=== PATIENT | female | born 1955 | race Caucasian/White ===

== ENCOUNTER 2016-06-19 10:09 | Emergency (ER) | payer BC ==
--- NOTE | 2016-06-19 10:34 | EDM.PDOC ---
<Pallavi Mcclure - Last Filed: 06/19/16 12:43> ED HPI Trauma - General Chief Complaint: Lower Extremity Injury/Pain Stated Complaint: FALL Time Seen by Provider: 06/19/16 10:19 - History of Present Illness INITIAL COMMENTS - FREE TEXT/NARRATIVE: History of present illness: [60 yo female fell on right knee this morining about 30 minutes ago. She went to go get mail from her condo and slipped on Ice and fell. She crawled to her car to the garage and called EMS. She has minimal pain but has not noticed any swelling or her knee out of place, no hip pain, syncope, chest pain, dizziness or other pertinent symptoms. She does not have history of osteoarthritis. She recently had aortic valve replacement on 12/2015. She is on coumadin and aspirin. ] Review of systems: As per history of present illness and below otherwise all systems reviewed and negative. Past medical history: As per history of present illness and as reviewed below otherwise noncontributory. Surgical history: As per history of present illness and as reviewed below otherwise noncontributory. Social history: No reported history of drug or alcohol abuse. Family history: As per history of present illness and as reviewed below otherwise noncontributory. Physical exam: General: Well developed, well nourished in NAD HEENT: Atraumatic, normocephalic, pupils reactive, negative for conjunctival pallor or scleral icterus, mucous membranes moist, throat clear, neck supple, nontender, trachea midline. Lungs: Clear to auscultation, breath sounds equal bilaterally, chest nontender. Heart: S1S2, regular, negative for clicks, rubs, or JVD. Abdomen: Soft, nondistended, nontender. Negative for masses or hepatosplenomegaly. Negative for costovertebral tenderness. Pelvis: Stable nontender. Genitourinary: Deferred. Rectal: Deferred. Extremities: Bilateral Knees: erythema, minimal swelling and tenderness. No echymosis or Effusion. No calf and hip tenderness Neurovascular unremarkable. Neuro: Awake, alert, oriented. Cranial nerves II through XII unremarkable. Cerebellum unremarkable. Motor and sensory unremarkable throughout. Exam nonfocal. Diagnostics: [Right knee x-ray: depressed lateral tibial plateau fracture. Pelvis x ray: unremarkable. ] Therapeutics: [None] Impression: [Depressed right lateral tibial plateau fracture] Plan: [Spoke with Dr. Crawley the orthopedics and she recommend to transfer due to her being on coumadin. Spoke to Dr. Murrell ( ortho) who accepted for direct admission. She will be transported by ground ambulance. ] Definitive disposition and diagnosis as appropriate pending reevaluation and review of above. Allergies/ADRs: Allergies Sulfa (Sulfonamide Antibiotics) Allergy (Verified 04/26/16 00:28) Cannot Remember vancomycin Allergy (Verified 04/26/16 00:28) Renal Insufficiency Home Medications: Ambulatory Orders Aspirin 81 mg PO DAILY 12/25/15 [Confirmed 04/26/16] Metoprolol Tartrate [Lopressor] 25 mg PO Q12HR 12/25/15 [Confirmed 04/26/16] Pantoprazole [Protonix] 40 mg PO BEDTIME 12/25/15 [Confirmed 04/26/16] Warfarin [Coumadin] 7.5 mg PO DAILY 12/25/15 [Confirmed 04/26/16] Levothyroxine 75 mcg PO DAILY 01/07/16 [Confirmed 04/26/16] Warfarin [Coumadin] 5 mg PO WEEKLY 06/19/16 [Confirmed 06/19/16] Past Medical History HEENT History: Reports: Impaired vision Cardiovascular History: Reports: Heart murmur, Hypertension Respiratory History: Reports: None Gastrointestinal History: Reports: None Genitourinary History: Reports: None CAMPUS COORDINATOR History: Reports: , Other (see below) Other OB/BYN History: tubal Musculoskeletal History: Reports: None Neurological History: Reports: None Psychiatric History: Reports: None Endocrine/Metabolic History: Reports: Other (see below) Other Endocrine/Metabolic History: thyroid Disease Hematologic History: Reports: None Immunologic History: Reports: None Oncologic (Cancer) History: Reports: None Dermatologic History: Reports: None - Infectious Disease History Infectious Disease History: Reports: None - Past Surgical History Head Surgeries/Procedures: Reports: None HEENT Surgical History: Reports: Tonsillectomy Cardiovascular Surgical History: Reports: Other (see below) Other Cardiovascular Surgeries/Procedures: aortic valve replacement 12/08/15. open heart surgery - 2015 GI Surgical History: Reports: Appendectomy, Cholecystectomy, Colonoscopy Female Surgical History: Reports: Hysterectomy, Tubal ligation Endocrine Surgical History: Reports: Parathyroidectomy Social & Family History - Family History Family Medical History: Noncontributory - Tobacco Use Smoking Status *Q: Never Smoker Second Hand Smoke Exposure: No - Caffeine Use Caffeine Use: Reports: Tea Caffeine Use Comment: states hasn't had caffeine since surgery - Alcohol Use Days Per Week of Alcohol Use: 1 Number of Drinks Per Day: 2 Total Drinks Per Week: 2 - Recreational Drug Use Recreational Drug Use: No Review of Systems - Review of Systems Review Of Systems: See Below (see below) Trauma Exam - Physical Exam Exam: See Below (see below) Course - Vital Signs Last Recorded V/S: Last Vital Signs Temp 36.5 C 06/19/16 10:14 Pulse 64 06/19/16 10:14 Resp 18 06/19/16 10:14 BP 152/73 H 06/19/16 10:14 Pulse Ox 96 06/19/16 10:14 - Orders/Labs/Meds Orders: Active Orders 24 hr Category Date Time Status BASIC METABOLIC PANEL,BMP [CHEM] Stat Lab 06/19/16 12:31 Received CBC WITH AUTO DIFF [HEME] Stat Lab 06/19/16 12:31 Received Labs: Laboratory Tests 06/19/16 Range/Units 12:31 INR 1.78 H (0.86-1.11) Meds: Medications Discontinued Medications Generic Name Dose Route Start Last Admin Trade Name Freq PRN Reason Stop Dose Admin Hydromorphone HCl 0.5 mg 06/19/16 13:12 Dilaudid IVPUSH 06/19/16 13:13 ONETIME STA Departure - Departure Time of Disposition: 12:50 Disposition: DC/Tfer to Acute Hospital 02 Condition: good Clinical Impression: Tibial plateau fracture, right Referrals: PCP,None [Primary Care Provider] - Forms: ED Department Discharge Additional Instructions: The following information is given to patients seen in the emergency department who are being discharged to home. This information is to outline your options for follow-up care. We provide all patients seen in our emergency department with a follow-up referral. The need for follow-up, as well as the timing and circumstances, are variable depending upon the specifics of your emergency department visit. If you don't have a primary care physician on staff, we will provide you with a referral. We always advise you to contact your personal physician following an emergency department visit to inform them of the circumstance of the visit and for follow-up with them and/or the need for any referrals to a consulting specialist. The emergency department will also refer you to a specialist when appropriate. This referral assures that you have the opportunity for follow-up care with a specialist. All of these measure are taken in an effort to provide you with optimal care, which includes your follow-up. Under all circumstances we always encourage you to contact your private physician who remains a resource for coordinating your care. When calling for follow-up care, please make the office aware that this follow-up is from your recent emergency room visit. If for any reason you are refused follow-up, please contact the [facility] Emergency Department at and asked to speak to the emergency department charge nurse. <Holland Smith - Last Filed: 06/19/16 13:24> Course - Vital Signs Text/Narrative:: 60-year-old female with a history of a recent aortic heart valve replacement on Coumadin now status post mechanical slip and fall with a right knee injury this morning. Patient unable to range of motion her bear weight secondary to pain since the injury. She has no prior history of surgical treatment of that knee or the right lower extremity. Patient does not have an orthopedic doctor. No other injury or complaint. Specifically no head injury or neck pain. Patient in no acute distress nontender hip and pelvis with stable pelvis. Right knee bony tenderness soft compartments and no significant soft tissue swelling and positive effusion. X-ray of the pelvis unremarkable. X-ray of the right knee with a lateral tibial plateau fracture which is depressed. X-rays interpreted by me/report reviewed. Case discussed with her Latasha Coats orthopedics loss prevention leader who states this injury is beyond the scope of practice and recommends transfer. Case discussed with Dr. Murrell orthopedist loss prevention leader at [facility] in my not. He is aware of history and findings accept patient in transfer to his service. Patient stable and consents for transfer Departure - Departure Time of Disposition: 13:21
--- NOTE | 2016-06-19 12:03 | CR ---
EXAMINATION: Right knee HISTORY: Fall COMPARISON: None TECHNIQUE: 3 views FINDINGS: There is a mildly displaced vertical fracture through the lateral tibial plateau. There is also impaction of the more medial aspect of the lateral tibial plateau. There is a small lipohemart hrosis. Joint space narrowing is noted within the patellofemoral compartment. The visualized osseous structures appear osteopenic. IMPRESSION: 1. Mildly displaced and impacted lateral tibial plateau fracture. 2. Osteopenia and degenerative changes also noted.
--- NOTE | 2016-06-19 12:05 | CR ---
EXAMINATION: Pelvis HISTORY: Pain COMPARISON: 04/26/2016 TECHNIQUE: AP views. FINDINGS: There is no definite acute osseous abnormality, dislocation, or fracture identified. Bone mineralization appears normal. The SI joints are symmetric. The iliopectineal lines are intact. Mild subchondral sclerosis is noted within the right acetabulum. IMPRESSION: No acute osseous abnormality identified.
[2016-06-19] MEDS: HYDROmorphone 1 MG/ML Syringe IVPUSH STA (13:37)
[2016-06-19 14:44] VITALS: BP 163/71
== END 2016-06-19 14:48 ==
LOC: MW.ED 10:09
DX: S82.141A Displaced bicondylar fracture of right tibia, initial encounter for closed fracture (principal); I10 Essential (primary) hypertension; Z88.2 Allergy status to sulfonamides; Z88.6 Allergy status to analgesic agent; Z79.82 Long term (current) use of aspirin; Z79.899 Other long term (current) drug therapy; Z90.49 Acquired absence of other specified parts of digestive tract; Z98.890 Other specified postprocedural states; Z90.89 Acquired absence of other organs; W00.0XXA Fall on same level due to ice and snow, initial encounter
CPT/HCPCS: 36415; 72170; 73562; 80048; 85025; 85610; 96374; 99285; J1170

== ENCOUNTER → 2016-08-08 | Outpatient (CLI) | payer BC ==
--- NOTE | 2016-08-08 15:20 | CR ---
EXAMINATION: Right knee HISTORY: Pain COMPARISON: 07/09/2016 TECHNIQUE: 4 views FINDINGS/IMPRESSION: There is screw and plate fixation of a lateral epicondyle fracture, unchanged i n position and alignment. Advanced joint space narrowing is noted within the patellofemoral compartm ent. No joint effusion.
== END ==
LOC: MW.CHORTHO 07:52
PROVIDERS: ATTEND Physician Assistant
DX: M25.561 Pain in right knee (principal); Z96.7 Presence of other bone and tendon implants; Z51.81 Encounter for therapeutic drug level monitoring; Z79.01 Long term (current) use of anticoagulants
CPT/HCPCS: 36415; 73564-26-RT; 73564-RT; 85610

== ENCOUNTER 2017-04-02 10:10 | Day surgery (SDC) | payer BC ==
[~2017-04-02 10:10] MED LIST: Lactated Ringers 1,000 ML IV SCH; Sodium Chloride 0.9% 10 ML Syringe FLUSH PRN; Sodium Chloride 0.9% 2.5 ML Syringe FLUSH PRN
[2017-04-02] MEDS ORDERED: Propofol 200 MG/20 ML SDV ONE (10:25)
[2017-04-02] MEDS ORDERED: Lidocaine 2% 5 ML SDV ONE (10:25)
--- NOTE | 2017-04-02 11:16 | PCM.PREANE ---
Preanesthetic Assessment - Procedure Proposed Procedure: EGD, Colonoscopy - Anesthesia/Transfusion/Family Hx Anesthesia History: Prior Anesthesia Without Reaction Family History of Anesthesia Reaction: No Transfusion History: No Prior Transfusion(s) Intubation History: Unknown Additional History: Extensive evaluation by Dr. Irizarry, Dr. Brunner and discussion with Dr. Fang done. Can she undergo these procedures without problem with anesthetic? Yes, we will proceed with iv sedation. - Review of Systems Pulmonary: Shortness of Breath (occasional) Cardiovascular: Palpitations (occasional), Other (Hx CHF w/cardiomyopathy - compensated) Gastrointestinal: Other (GERD) Neurological: No Symptoms Other: Reports: Easy Bleeding (due to anticoagualtion), Anxiety - Physical Assessment NPO Status Date: 04/01/17 NPO Status Time: 22:00 Height: 5 ft 8 in Weight: 268 lb ASA Class: 3 Mental Status: Alert & Oriented x3 Airway Class: Mallampati = 2 Dentition: Reports: Normal Dentition Thyro-Mental Finger Breadths: 3 Mouth Opening Finger Breadths: 3 (sloped palate) ROM/Head Extension: Full Lungs: Clear to Auscultation, Normal Respiratory Effort Cardiovascular: Regular Rate, Regular Rhythm, No Murmurs, Other (click due to valve) - Allergies Allergies/Adverse Reactions: Allergies Allergy/AdvReac Type Severity Reaction Status Date / Time Sulfa (Sulfonamide Allergy Rash Verified 03/16/17 12:09 Antibiotics) vancomycin Allergy Renal Verified 03/16/17 12:09 Insufficiency - Blood Blood Available: No Product(s) Available: None - Anesthesia Plan Pre-Op Medication Ordered: None - Acknowledgements Anesthesia Type Planned: MAC Pt an Appropriate Candidate for the Planned Anesthesia: Yes Alternatives and Risks of Anesthesia Discussed w Pt/Guardian: Yes Pt/Guardian Understands and Agrees with Anesthesia Plan: Yes PreAnesthesia Questionnaire HEENT History: Reports: Impaired Vision Other HEENT History: wears glasses Cardiovascular History: Reports: Heart Murmur, Hypertension Respiratory History: Reports: None Other Respiratory History: short of breath on exertion, possible sleep apnea( never tested) Gastrointestinal History: Reports: None Genitourinary History: Reports: None SCARRER History: Reports: , Other (See Below) Other OB/BYN History: tubal Musculoskeletal History: Reports: None Other Musculoskeletal History: hx of fx right tibial plateau Neurological History: Reports: None Psychiatric History: Reports: None Endocrine/Metabolic History: Reports: Other (See Below) Other Endocrine/Metabolic History: thyroid Disease Hematologic History: Reports: None Other Hematologic History: denies blood transfusions Immunologic History: Reports: None Oncologic (Cancer) History: Reports: None Dermatologic History: Reports: None - Infectious Disease History Infectious Disease History: Reports: None - Past Surgical History Cardiovascular Surgical History: Reports: Other (See Below) Other Cardiovascular Surgeries/Procedures: aortic valve replacement 12/08/15. open heart surgery - 2015 - SUBSTANCE USE Smoking Status *Q: Never Smoker Second Hand Smoke Exposure: No Days Per Week of Alcohol Use: 1 Number of Drinks Per Day: 2 Total Drinks Per Week: 2 Recreational Drug Use History: No - HOME MEDS Home Medications: Home Meds Aspirin 81 mg PO DAILY 12/25/15 [History] Metoprolol Tartrate [Lopressor] 25 mg PO Q12HR 12/25/15 [History] Pantoprazole [Protonix] 40 mg PO ASDIRECTED 12/25/15 [History] Warfarin [Coumadin] 7.5 mg PO DAILY 12/25/15 [History] Levothyroxine 75 mcg PO DAILY 01/07/16 [History] Warfarin [Coumadin] 11.25 mg PO WEEKLY 06/19/16 [History] Ascorbic Acid [Vitamin C] 1,000 mg PO DAILY 03/16/17 [History] Calcium Carbonate/Vitamin D3 [Calcium 500 mg Chewable Tablet] 500 mg PO DAILY [History] Multivitamin [Multiple Vitamins] 1 tab PO DAILY 03/16/17 [History] Valsartan 0 mg PO DAILY 03/27/17 [History] - CURRENT (IN HOUSE) MEDS Current Meds: Current Medications Lactated Ringer's (Ringers, Lactated) 1,000 mls @ 125 mls/hr IV ASDIRECTED TERE Sodium Chloride (Saline Flush) 10 ml FLUSH ASDIRECTED PRN PRN Reason: Keep Vein Open Sodium Chloride (Saline Flush) 2.5 ml FLUSH ASDIRECTED PRN PRN Reason: Keep Vein Open Discontinued Medications Lidocaine (Xylocaine-Mpf 2%) Confirm Administered Dose 5 ml .ROUTE .STK-MED ONE Stop: 04/02/17 10:26 Propofol (Diprivan 20 Ml) Confirm Administered Dose 400 mg .ROUTE .STK-MED ONE Stop: 04/02/17 10:26
--- NOTE | 2017-04-02 11:59 | PCM.OPNOTE ---
- General Post-Op/Procedure Note Date of Surgery/Procedure: 04/02/17 Operative Procedure(s): Diagnostic EGD and colonoscopy Findings: Small hiatal hernia, mild gastritis, rectal mass, grade 4 hemorrhoids Pre Op Diagnosis: Anemia, hematochezia Post-Op Diagnosis: Hiatal hernia, mild gastritis, rectal mass, grade 4 hemorrhoids Anesthesia Technique: TEE Primary Surgeon: Avril Fang Condition: Good
--- NOTE | 2017-04-02 12:00 | PCM.POSTAN ---
POST ANESTHESIA ASSESSMENT - MENTAL STATUS Mental Status: Alert, Oriented - RESPIRATORY Respiratory Status: Respiratory Rate WNL, Airway Patent, O2 Saturation Stable - CARDIOVASCULAR CV Status: Pulse Rate WNL, Blood Pressure Stable - GASTROINTESTINAL GI Status: No Symptoms - POST OP HYDRATION Hydration Status: Adequate & Stable
--- NOTE | 2017-04-02 12:09 | PCM48HPAN ---
Post Anesthesia Note - EVALUATION WITHIN 48HRS OF ANESTHETIC Vital Signs in Normal Range: Yes Patient Participated in Evaluation: Yes Respiratory Function Stable: Yes Airway Patent: Yes Cardiovascular Function Stable: Yes Hydration Status Stable: Yes Pain Control Satisfactory: Yes Nausea and Vomiting Control Satisfactory: Yes Mental Status Recovered: Yes
[2017-04-02 12:45] VITALS: BP 107/54
[2017-04-02] MEDS ORDERED: HYDROmorphone 2 MG/ML Syringe ONE (12:55)
--- NOTE | 2017-04-02 17:17 | OR ---
SURGEON: AVRIL FANG MD DATE OF PROCEDURE: 04/02/2017 PREOPERATIVE DIAGNOSIS: Hematochezia, anemia. POSTOPERATIVE DIAGNOSES: 1. Hiatal hernia. 2. Mild gastritis. 3. Rectal mass. 4. Grade 4 hemorrhoids. PROCEDURE PERFORMED: Diagnostic EGD and colonoscopy. ENDOSCOPIST: Avril Fang MD. ANESTHESIA: MAC. INSTRUMENT USED: Olympus endoscope, Olympus colonoscope. EXTENT OF EXAM: To the second portion of duodenum, to the cecum. PREPARATION: Good. LIMITATIONS: None. INDICATION FOR EXAMINATION: The patient is a 61-year-old female, who presents with hematochezia and anemia. She has a heart history and is on Coumadin. She was seen by her primary care physician, who bridged her with Lovenox for the procedure today. The patient and I discussed the need for diagnostic EGD and colonoscopy. We discussed those procedure, expected perioperative course, and risks including bleeding, infection, or damage to surrounding structures, including perforation. The patient verbalized understanding and wishes to proceed. PROCEDURE IN DETAIL: The patient was brought into the endoscopy suite and placed in a beach chair position. A time-out was completed verifying the patient's name, age, date of , allergies, and procedure to be performed. Monitored anesthesia care was induced and a bite block was placed in the patient's mouth. Continuous oxygen was provided via nasal cannula throughout the procedure. After adequate sedation was achieved, a well lubricated endoscope was placed in the patient's mouth and advanced under direct visualization to the second portion of duodenum. This appeared normal and a photograph was taken. The scope was then fully withdrawn while examining the color, texture, anatomy, and integrity of the upper GI tract. The duodenum appeared normal. The scope was removed from the stomach and a photograph was taken of the pylorus and the GE junction. The patient was noted to have a very small hiatal hernia. Biopsies were taken of the gastric antrum, body, and fundus and sent for histologic and H. pylori testing. The patient was noted to have a small amount of gastritis in the antrum. No ulcers were noted. The scope was then brought into the distal esophagus and a photograph was taken of the hiatal sac and GE junction. Both appeared normal with no evidence of inflammation or esophagitis. The remainder of the esophageal mucosa was free of pathology. The scope was then removed from the patient and this portion of the procedure was terminated. The patient was placed in a left lateral decubitus position. A digital rectal exam was performed. This exam revealed grade 4 hemorrhoids. There were no stigmata of recent bleeding or inflammation. A well lubricated colonoscope was inserted into the rectum and advanced under direct visualization to the level of cecum. The cecum was identified by both visual and anatomic landmarks. A photograph was taken of the cecal cap as well as with the scope retroflexed within the cecum. The scope was then fully withdrawn while examining the color, texture, anatomy, and integrity of the mucosa from the cecum to the anal canal. The patient was found to have a rectal mass at 10 cm. This appeared to be broad based and there was a question of whether or not it was invading the surrounding structures. Given this I took multiple biopsies of the mass itself which was friable. These were sent to pathology for histologic testing. The scope was then brought into the rectum and retroflexed. This allowed visualization of the upper part of the rectal mass and photographs were taken. The scope was then straightened out and removed from the patient. The cecum to anus time was over 6 minutes. The patient tolerated procedure well and was taken to PACU in stable condition. ENDOSCOPIC DIAGNOSES: 1. Hiatal hernia. 2. Mild gastritis. 3. Rectal mass. 4. Grade 4 hemorrhoids. RECOMMENDATIONS: We will refer the patient on to a colorectal surgeon in [place] for further workup and removal of this mass. FARNAZ PRADHAN /[id number]
== END 2017-04-02 12:30 | disposition home or self-care (01) ==
LOC: MW.SDS 10:10
PROVIDERS: ATTEND Surgery
DX: K29.50 Unspecified chronic gastritis without bleeding (principal); D12.8 Benign neoplasm of rectum; K44.9 Diaphragmatic hernia without obstruction or gangrene; K64.3 Fourth degree hemorrhoids; D64.9 Anemia, unspecified; F41.9 Anxiety disorder, unspecified; K21.9 Gastro-esophageal reflux disease without esophagitis; I11.0 Hypertensive heart disease with heart failure; I50.9 Heart failure, unspecified; E07.9 Disorder of thyroid, unspecified; E66.01 Morbid (severe) obesity due to excess calories; Z68.41 Body mass index [BMI] 40.0-44.9, adult; Z79.01 Long term (current) use of anticoagulants; Z79.899 Other long term (current) drug therapy; Z79.82 Long term (current) use of aspirin; Z95.2 Presence of prosthetic heart valve; Z88.2 Allergy status to sulfonamides; Z88.8 Allergy status to other drugs, medicaments and biological substances; Z90.710 Acquired absence of both cervix and uterus; Z98.51 Tubal ligation status; Z98.890 Other specified postprocedural states
CPT/HCPCS: 43239; 45380; 88305; 88312; J1170; J7120; 00740; J2704

== ENCOUNTER 2017-08-01 13:08 | Emergency (ER) | payer BC ==
--- NOTE | 2017-08-01 13:52 | EDM.PDOC ---
ED HPI GENERAL MEDICAL PROBLEM - General Chief Complaint: Upper Extremity Injury/Pain Stated Complaint: RIGHT ARM PAIN Time Seen by Provider: 08/01/17 13:28 Source of Information: Reports: Patient History Limitations: Reports: No Limitations - History of Present Illness INITIAL COMMENTS - FREE TEXT/NARRATIVE: HISTORY AND PHYSICAL: []61-year-old female presenting with right shoulder arm pain History of Present Illness: []Patient was seen at [facility] & was given an IV on Thursday pain started on Thursday. 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 Past medical history: As per history of present illness and as reviewed below otherwise noncontributory. Surgical history: As per history of present illness and as reviewed below otherwise noncontributory. Social history: No reported history of drug or alcohol abuse. Family history: As per history of present illness and as reviewed below otherwise noncontributory. Physical exam: Alert and oriented female answering questions appropriately in full sentences without any shortness of breath HEENT: Atraumatic, normocehpalic, pupils reactive, negative for conjunctival pallor or scleral icterus, mucous membranes moist, throat clear, neck supple, nontender, trachea midline. Lungs: Clear to auscultation, breath sounds equal bilaterally, chest non tender. Heart: S1S2, regular, negative for clicks, rubs, or JVD. Abdomen: Soft, nondistended, nontender. Negative for masses or hepatossplenmegaly. Negative for costovertebral tenderness. Pelvis: Stable nontender. Genitourinary: Deferred. Rectal: Deferred Extremities: Atraumatic, negative for cords or calf pain. There was no rotator cuff involvement no difficulty with raising and lowering her arm. Radial pulse is intact Neurovascular unremarkable. Neuro: Awake, alert, oriented. Cranial nerves II through XII unremarkable. Cerebellum unremarkable. Motor and sensory unremarkable throughout. Exam nonfocal. Discussed the results with the patient to believe the origin of her pain is in her shoulder Diagnostics: []Ultrasound right upper extremity Extremity right shoulder Therapeutics: [] Impression: []Shoulder pain Plan: []Discharged to home May use the pain medicine that she has at home for helping her sleep Referral to Dr. Latasha Crawley for further evaluation Follow-up in the emergency room if you have worsening of your symptoms as needed Definitive disposition and diagnosis as appropriate pending reevaluation and review of above. Onset: Gradual Duration: Day(s): (3) Quality: Reports: Ache Severity: Moderate Improves with: Reports: None Worsens with: Reports: None right arm Pain Score (Numeric/FACES): 7 - Related Data Allergies Allergy/AdvReac Type Severity Reaction Status Date / Time Sulfa (Sulfonamide Allergy Rash Verified 03/16/17 12:09 Antibiotics) vancomycin Allergy Renal Verified 03/16/17 12:09 Insufficiency Home Meds: Home Meds Aspirin 81 mg PO DAILY 12/25/15 [History] Metoprolol Tartrate [Lopressor] 25 mg PO Q12HR 12/25/15 [History] Pantoprazole [ProTONIX] 40 mg PO ASDIRECTED 12/25/15 [History] Warfarin [Coumadin] 7.5 mg PO DAILY 12/25/15 [History] Levothyroxine 75 mcg PO DAILY 01/07/16 [History] Warfarin [Coumadin] 11.25 mg PO WEEKLY 06/19/16 [History] Ascorbic Acid [Vitamin C] 1,000 mg PO DAILY 03/16/17 [History] Calcium Carbonate/Vitamin D3 [Calcium 500 mg Chewable Tablet] 500 mg PO DAILY [History] Multivitamin [Multiple Vitamins] 1 tab PO DAILY 03/16/17 [History] Valsartan 0 mg PO DAILY 03/27/17 [History] Past Medical History HEENT History: Reports: Impaired Vision Other HEENT History: wears glasses Cardiovascular History: Reports: Cardiomyopathy, Heart Murmur, Heart Valve Replacement, Hypertension Respiratory History: Reports: SOB Other Respiratory History: short of breath on exertion, possible sleep apnea( never tested) Gastrointestinal History: Reports: Colon Polyp, GERD, Hemorrhoids Genitourinary History: Reports: None [employer] History: Reports: , Other (See Below) Other OB/BYN History: tubal Musculoskeletal History: Reports: Arthritis, Fracture Other Musculoskeletal History: hx of fx right tibial plateau Neurological History: Reports: None Psychiatric History: Reports: None Endocrine/Metabolic History: Reports: Hypothyroidism, Obesity/BMI 30+ Other Endocrine/Metabolic History: thyroid Disease Hematologic History: Reports: Anemia Other Hematologic History: denies blood transfusions Immunologic History: Reports: None Oncologic (Cancer) History: Reports: None Dermatologic History: Reports: None - Infectious Disease History Infectious Disease History: Reports: None - Past Surgical History Head Surgeries/Procedures: Reports: None Cardiovascular Surgical History: Reports: Valve Replacement Other Cardiovascular Surgeries/Procedures: aortic valve replacement Other Musculoskeletal Surgeries/Procedures:: patient reports screws to right knee Social & Family History - Family History Family Medical History: Noncontributory - Tobacco Use Smoking Status *Q: Unknown Ever Smoked Second Hand Smoke Exposure: No - Caffeine Use Caffeine Use: Reports: Coffee Caffeine Use Comment: states hasn't had caffeine since surgery - Alcohol Use Days Per Week of Alcohol Use: 1 Number of Drinks Per Day: 2 Total Drinks Per Week: 2 - Recreational Drug Use Recreational Drug Use: No Drug Use in Last 12 Months: No Review of Systems - Review of Systems Review Of Systems: ROS reveals no pertinent complaints other than HPI. ED EXAM, GENERAL - Physical Exam Exam: See Below (see dictation) Course - Vital Signs Last Recorded V/S: Last Vital Signs Temp 36.3 C 08/01/17 13:25 Pulse 66 08/01/17 13:25 Resp 18 08/01/17 13:25 BP 184/85 H 08/01/17 13:25 Pulse Ox 96 08/01/17 13:25 - Orders/Labs/Meds Orders: Active Orders 24 hr Category Date Time Status Shoulder Comp Rt [CR] Stat Exams 08/01/17 13:26 Taken Venous Doppler Upr Ext Rt [US] Stat Exams 08/01/17 13:32 Taken Departure - Departure Time of Disposition: 15:20 Disposition: Home, Self-Care 01 Condition: Good Clinical Impression: Shoulder pain Qualifiers: Chronicity: acute Laterality: right Qualified Code(s): M25.511 - Pain in right shoulder - Discharge Information Instructions: Shoulder Pain, Musculoskeletal Pain Referrals: PCP,None [Primary Care Provider] - Latasha Crawley MD [Physician] - Forms: ED Department Discharge Additional Instructions: The following information is given to patients seen in the emergency department who are being discharged to home. This information is to outline your options for follow-up care. We provide all patients seen in our emergency department with a follow-up referral. The need for follow-up, as well as the timing and circumstances, are variable depending upon the specifics of your emergency department visit. If you don't have a primary care physician on staff, we will provide you with a referral. We always advise you to contact your personal physician following an emergency department visit to inform them of the circumstance of the visit and for follow-up with them and/or the need for any referrals to a consulting specialist. The emergency department will also refer you to a specialist when appropriate. This referral assures that you have the opportunity for followup care with a specialist. All of these measure are taken in an effort to provide you with optimal care, which includes your followup. Under all circumstances we always encourage you to contact your private physician who remains a resource for coordinating your care. When calling for followup care, please make the office aware that this follow-up is from your recent emergency room visit. If for any reason you are refused follow-up, please contact the [facility] emergency department at and asked to speak to the emergency department charge nurse. Use the pain medication that you have at home Referral has been made to Dr. Latasha Crawley [facility] Professional Building [address] [place] [address], [address] [place] [address] Return to the emergency room as needed and discussed - My Orders Last 24 Hours: My Active Orders 08/01/17 13:26 Shoulder Comp Rt [CR] Stat 08/01/17 13:32 Venous Doppler Upr Ext Rt [US] Stat - Assessment/Plan Last 24 Hours: My Active Orders 08/01/17 13:26 Shoulder Comp Rt [CR] Stat 08/01/17 13:32 Venous Doppler Upr Ext Rt [US] Stat
[2017-08-01 15:32] VITALS: BP 150/71
--- NOTE | 2017-08-03 14:08 | US ---
EXAM DATE: 08/01/17 PATIENT'S AGE: 61 Patient: SKIP FISH Facility: [place], [place] Site . Site : 1955 Study: US Extremity Venous [id number] 2:49:17 PM Ordering Physician: Doctor Gerard Final Report: INDICATION: Left arm pain TECHNIQUE: A compression venous ultrasound exam was performed of the left upper extremity using goldman-scale imaging, color Doppler and spectral Doppler analysis. FINDINGS: Sonographic imaging of the left upper extremity demonstrates normal compressibility and color Doppler venous blood flow within the Left internal jugular subclavian axillary, brachial basilic cephalic veins. Evaluation of the forearm demonstrate normal blood flow along the radial ulnar aspects of the forearm. IMPRESSION: Normal venous ultrasound exam. No evidence of deep vein thrombosis within the left upper extremity. Dictated by Jaimie Ordonez MD @ Aug 01 2017 3:02PM (Electronic Signature) Report Signed by Proxy. BELLA
--- NOTE | 2017-08-03 14:09 | CR ---
EXAM DATE: 08/01/17 PATIENT'S AGE: 61 Patient: SKIP FISH Facility: [place], [place] Site . Site : 1955 Study: XRay Shoulder Right [id number] 2:50:16 PM Ordering Physician: Doctor Gerard Final Report: INDICATION: Shoulder pain TECHNIQUE: Shoulder radiograph 3 views right COMPARISON: None FINDINGS: Bones: No acute fractures or aggressive bone lesions are identified. Joints: The glenohumeral is unremarkable. Mild osteoarthritis of the AC joint is noted with inferior spurring seen along the distal acromion. Soft tissues: Unremarkable. The visualized hemithorax is unremarkable in appearance. No radiopaque foreign bodies are seen. IMPRESSION: 1. No acute osseous injuries or abnormalities are noted. Dictated by Victor Hugo Payan MD @ 08/01/2017 3:11:07 PM Dictated by: Victor Hugo Payan MD @ 08/01/2017 15:11:11 (Electronic Signature) Report Signed by Proxy. BELLA
== END 2017-08-01 15:31 | disposition home or self-care (01) ==
LOC: MW.ED 13:08
DX: M25.511 Pain in right shoulder (principal); E03.9 Hypothyroidism, unspecified; E66.9 Obesity, unspecified; Z88.2 Allergy status to sulfonamides; Z88.1 Allergy status to other antibiotic agents; Z79.899 Other long term (current) drug therapy; Z79.01 Long term (current) use of anticoagulants; Z79.82 Long term (current) use of aspirin; Z95.5 Presence of coronary angioplasty implant and graft; Z68.41 Body mass index [BMI] 40.0-44.9, adult
CPT/HCPCS: 73030-26-RT; 73030-RT; 93971-26-RT; 93971-RT; 99283; 99284-25

== ENCOUNTER 2018-10-12 11:14 | Day surgery (SDC) | payer BC ==
[~2018-10-12 11:14] MED LIST changes: +Lidocaine 2% 5 ML SDV ONE; +Propofol 200 MG/20 ML SDV ONE; +Sodium Chloride 0.9% 10 ML SDV IV PRN; +fentaNYL 100 MCG/2 ML SDV ONE
--- NOTE | 2018-10-12 11:53 | PCM.PREANE ---
Preanesthetic Assessment - Anesthesia/Transfusion/Family Hx Anesthesia History: Prior Anesthesia Without Reaction Family History of Anesthesia Reaction: No Transfusion History: No Prior Transfusion(s) Intubation History: Unknown - Review of Systems General: No Symptoms Pulmonary: No Symptoms Cardiovascular: No Symptoms Gastrointestinal: No Symptoms, Other (large colon polyp 03/22 - resected) Neurological: No Symptoms Other: Reports: None - Physical Assessment O2 Sat by Pulse Oximetry: 96 Respiratory Rate: 15 Vital Signs: Last Vital Signs Temp 36.4 C 10/12/18 11:33 Pulse 74 10/12/18 11:33 Resp 15 10/12/18 11:33 BP 149/78 H 10/12/18 11:33 Pulse Ox 96 10/12/18 11:33 Height: 5 ft 8 in Weight: 139.253 kg ASA Class: 3 Mental Status: Alert & Oriented x3 Airway Class: Mallampati = 3 Dentition: Reports: Normal Dentition Thyro-Mental Finger Breadths: 3 Mouth Opening Finger Breadths: 3 ROM/Head Extension: Full Lungs: Clear to Auscultation, Normal Respiratory Effort Cardiovascular: Regular Rate, Regular Rhythm - Allergies Allergies/Adverse Reactions: Allergies Allergy/AdvReac Type Severity Reaction Status Date / Time Sulfa (Sulfonamide Allergy Rash Verified 10/08/18 21:25 Antibiotics) vancomycin Allergy Renal Verified 10/08/18 21:25 Insufficiency - Blood Blood Available: No - Anesthesia Plan Pre-Op Medication Ordered: None - Acknowledgements Anesthesia Type Planned: MAC Pt an Appropriate Candidate for the Planned Anesthesia: Yes Alternatives and Risks of Anesthesia Discussed w Pt/Guardian: Yes Pt/Guardian Understands and Agrees with Anesthesia Plan: Yes PreAnesthesia Questionnaire HEENT History: Reports: Impaired Vision Other HEENT History: wears glasses Cardiovascular History: Reports: Cardiomyopathy (heart failure with preserved EF ), Heart Murmur, Heart Valve Replacement (AVR (mechanical)), Hypertension, 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) Respiratory History: Reports: SOB Other Respiratory History: short of breath on exertion, possible sleep apnea (never tested) Gastrointestinal History: Reports: Colon Polyp, GERD, Hemorrhoids Genitourinary History: Reports: None [employer] History: Reports: , Other (See Below) Other OB/BYN History: tubal Musculoskeletal History: Reports: Arthritis, Fracture Other Musculoskeletal History: hx of fx right tibial plateau Neurological History: Reports: None Psychiatric History: Reports: None Endocrine/Metabolic History: Reports: Hypothyroidism, Obesity/BMI 30+ (BMI 46.7) Other Endocrine/Metabolic History: thyroid Disease Hematologic History: Reports: Anemia Other Hematologic History: denies blood transfusions Immunologic History: Reports: None Oncologic (Cancer) History: Reports: None Dermatologic History: Reports: None - Infectious Disease History Infectious Disease History: Reports: Chicken Pox, Measles - Past Surgical History Head Surgeries/Procedures: Reports: None HEENT Surgical History: Reports: Tonsillectomy Cardiovascular Surgical History: Reports: Valve Replacement Other Cardiovascular Surgeries/Procedures: aortic valve replacement Respiratory Surgical History: Reports: None GI Surgical History: Reports: Appendectomy, Cholecystectomy, Colonoscopy Female Surgical History: Reports: Hysterectomy, Tubal Ligation Endocrine Surgical History: Reports: Parathyroidectomy Neurological Surgical History: Reports: None Musculoskeletal Surgical History: Reports: ORIF Other Musculoskeletal Surgeries/Procedures:: patient reports screws to right knee - SUBSTANCE USE Smoking Status *Q: Never Smoker Recreational Drug Use History: No - HOME MEDS Home Medications: Home Meds Metoprolol Tartrate [Lopressor] 25 mg PO BID 12/25/15 [History] Pantoprazole [ProTONIX] 40 mg PO DAILY 12/25/15 [History] Levothyroxine 75 mcg PO DAILY 01/07/16 [History] Furosemide 20 mg PO DAILY 10/06/18 [History] Losartan Potassium 100 mg PO DAILY 10/06/18 [History] Enoxaparin [Lovenox] 120 mg SUBCUT Q12HR 10/08/18 [History] - CURRENT (IN HOUSE) MEDS Current Meds: Current Medications Lactated Ringer's (Ringers, Lactated) 1,000 mls @ 125 mls/hr IV ASDIRECTED [facility] Last Admin: 10/12/18 11:38 Dose: 125 mls/hr Sodium Chloride (Saline Flush) 10 ml FLUSH ASDIRECTED PRN PRN Reason: Keep Vein Open Sodium Chloride (Saline Flush) 2.5 ml FLUSH ASDIRECTED PRN PRN Reason: Keep Vein Open Sodium Chloride (Saline Flush) 10 ml FLUSH ASDIRECTED PRN PRN Reason: Keep Vein Open Sodium Chloride (Saline Flush) 2.5 ml FLUSH ASDIRECTED PRN PRN Reason: Keep Vein Open Sodium Chloride (Normal Saline) 10 ml IV ASDIRECTED PRN PRN Reason: IV Use Discontinued Medications Fentanyl (Sublimaze) Confirm Administered Dose 100 mcg .ROUTE .STK-MED ONE Stop: 10/12/18 11:12 Lidocaine (Xylocaine-Mpf 2%) Confirm Administered Dose 5 ml .ROUTE .STK-MED ONE Stop: 10/12/18 11:11 Propofol (Diprivan 20 Ml) Confirm Administered Dose 400 mg .ROUTE .STK-MED ONE Stop: 10/12/18 11:11
[2018-10-12] MEDS ORDERED: Propofol 200 MG/20 ML SDV ONE (14:46)
--- NOTE | 2018-10-12 15:03 | PCM.OPNOTE ---
- General Post-Op/Procedure Note Date of Surgery/Procedure: 10/12/18 Operative Procedure(s): Diagnostic colonoscopy Findings: Sigmoid colon polyp @ 40cm, splenic flexure polyp @ 70cm, rectal site appears normal. Pre Op Diagnosis: History of rectal polyp Post-Op Diagnosis: Sigmoid and splenic flexure polyp Anesthesia Technique: MAC Primary Surgeon: Avril Fang Condition: Good
--- NOTE | 2018-10-12 15:34 | PCM48HPAN ---
Post Anesthesia Note - EVALUATION WITHIN 48HRS OF ANESTHETIC Vital Signs in Normal Range: Yes Patient Participated in Evaluation: Yes Respiratory Function Stable: Yes Airway Patent: Yes Cardiovascular Function Stable: Yes Hydration Status Stable: Yes Pain Control Satisfactory: Yes Nausea and Vomiting Control Satisfactory: Yes Mental Status Recovered: Yes Resp Rate: 15 - COMMENTS/OBSERVATIONS Free Text/Narrative:: no anesthesia problems
[2018-10-12 15:40] VITALS: BP 118/59
--- NOTE | 2018-10-13 14:47 | OR ---
SURGEON: AVRIL FANG MD DATE OF PROCEDURE: 10/12/2018 PREOPERATIVE DIAGNOSIS: History of rectal polyp. POSTOPERATIVE DIAGNOSES: 1. Sigmoid colon polyp. 2. Splenic flexure polyp. 3. Grade 4 hemorrhoids. PROCEDURE PERFORMED: Diagnostic colonoscopy with biopsies. PRIMARY SURGEON: Avril Fang MD. ANESTHESIA: MAC. INSTRUMENT USED: Olympus colonoscope. EXTENT OF EXAM: To the cecum. PREPARATION: Good. LIMITATIONS: None. INDICATIONS FOR EXAMINATION: The patient is a 62-year-old female, who was found to have a large tubulovillous adenoma within the rectum last year. She saw a colorectal surgeon, who was able to resect this, but recommended a 1-year followup. I explained the need for the procedure. The patient has mechanical heart valve and so antibiotics were given preoperatively. I explained the procedure; expected perioperative course; and risks including bleeding, infection, or damage to surrounding structures including perforation. She verbalized understanding and wishes to proceed. PROCEDURE IN DETAIL: The patient was brought to the endoscopy suite and placed in a left lateral decubitus position. A time-out was completed verifying the patient's name, age, date of , allergies, and procedure to be performed. Monitored anesthesia care was induced and continuous oxygen was provided via nasal cannula throughout the procedure. After adequate sedation was achieved, a digital rectal exam was performed. The patient had large grade 4 hemorrhoids. A well-lubricated colonoscope was inserted in the rectum and advanced under direct visualization to the level of the cecum. The cecum was identified by both visual and anatomic landmarks. A photograph was taken of the cecal cap as well as with the scope retroflexed within the cecum. The scope was then fully withdrawn while examining the color, texture, anatomy, and integrity of the mucosa from the cecum to the anal canal. At the splenic flexure, the patient had a small sessile polyp that appeared to be a tubular adenoma. It was removed in piecemeal fashion using cold biopsy forceps. The splenic flexure polyp was at 70 cm. At 40 cm, the patient had a pedunculated polyp that appeared to be a tubular adenoma. This was removed in piecemeal fashion using cold biopsy forceps. The scope was then brought into the rectum and retroflexed to allow visualization of the anal canal opening. This appeared normal and a photograph was taken. The scope was then straightened out. On inspection of the rectum, I could see the area where her previous resection was performed. This area appeared normal. This also appeared normal with the scope retroflexed as well. A biopsy was taken of the area and sent to Pathology, labeled as rectal biopsy, to ensure that there were no other changes histologically. The scope was then straightened out and fully withdrawn. During the case, I took great care to make sure that the biopsy sites were hemostatic before proceeding given that the patient is currently doing Lovenox bridging. The cecum to anus time was 14 minutes. The patient tolerated the procedure well and was taken to the PACU in stable condition. ENDOSCOPIC DIAGNOSES: 1. Splenic flexure polyp. 2. Sigmoid colon polyp. 3. Grade 4 hemorrhoids. RECOMMENDATIONS: Follow up in clinic in 2 weeks. FARNAZ PRADHAN /[id number]
== END 2018-10-12 15:57 | disposition home or self-care (01) ==
LOC: MW.SDS 11:14
PROVIDERS: ATTEND Surgery
DX: Z09 Encounter for follow-up examination after completed treatment for conditions other than malignant neoplasm (principal); D12.5 Benign neoplasm of sigmoid colon; D12.3 Benign neoplasm of transverse colon; K64.3 Fourth degree hemorrhoids; K62.89 Other specified diseases of anus and rectum; K21.9 Gastro-esophageal reflux disease without esophagitis; I11.0 Hypertensive heart disease with heart failure; I42.9 Cardiomyopathy, unspecified; I50.32 Chronic diastolic (congestive) heart failure; E03.9 Hypothyroidism, unspecified; E66.01 Morbid (severe) obesity due to excess calories; Z68.42 Body mass index [BMI] 45.0-49.9, adult; Z88.2 Allergy status to sulfonamides; Z88.1 Allergy status to other antibiotic agents; Z95.1 Presence of aortocoronary bypass graft; Z86.010 Personal history of colon polyps; Z79.82 Long term (current) use of aspirin; Z79.01 Long term (current) use of anticoagulants; Z79.899 Other long term (current) drug therapy
CPT/HCPCS: 45380; 88305; J2001; J2704; J3010; J7120; 00811

== ENCOUNTER 2021-10-12 14:22 | Emergency (ER) | payer MEDICARE, BC ==
[2021-10-12 18:28] LABS: CARBON DIOXIDE,CO2 27.7 mmol/L (21.0-32.0); POTASSIUM,K 3.4 mmol/L (3.5-5.1)
[2021-10-12 19:34] VITALS: BP 147/93; PULSE 88
== END 2021-10-12 19:34 | disposition home or self-care (01) ==
LOC: MW.ED 14:22
DX: U07.1 COVID-19 (principal); I11.0 Hypertensive heart disease with heart failure; I50.9 Heart failure, unspecified; E03.9 Hypothyroidism, unspecified; K21.9 Gastro-esophageal reflux disease without esophagitis; E66.9 Obesity, unspecified; Z68.1 Body mass index [BMI] 19.9 or less, adult; Z88.2 Allergy status to sulfonamides; Z88.1 Allergy status to other antibiotic agents; Z79.899 Other long term (current) drug therapy
CPT/HCPCS: 36415; 71045; 80053; 85025; 99283; U0002

== ENCOUNTER 2022-02-13 08:47 | Day surgery (SDC) | payer MEDICARE, BC ==
[~2022-02-13 08:47] MED LIST changes: -Sodium Chloride 0.9% 10 ML SDV IV PRN; +Sodium Chloride 0.9% 20 ML SDV IV PRN
[2022-02-13 11:38] VITALS: BP 140/66; PULSE 56
== END 2022-02-13 11:40 | disposition home or self-care (01) ==
LOC: MW.SDS 08:47
PROVIDERS: ATTEND Surgery
DX: Z12.11 Encounter for screening for malignant neoplasm of colon (principal); D12.2 Benign neoplasm of ascending colon; D12.4 Benign neoplasm of descending colon; D12.3 Benign neoplasm of transverse colon; D12.8 Benign neoplasm of rectum; K64.3 Fourth degree hemorrhoids; K21.9 Gastro-esophageal reflux disease without esophagitis; I11.0 Hypertensive heart disease with heart failure; I50.9 Heart failure, unspecified; E03.9 Hypothyroidism, unspecified; E66.01 Morbid (severe) obesity due to excess calories; Z68.42 Body mass index [BMI] 45.0-49.9, adult; Z86.010 Personal history of colon polyps; Z79.899 Other long term (current) drug therapy; Z79.890 Hormone replacement therapy; Z90.49 Acquired absence of other specified parts of digestive tract; Z98.890 Other specified postprocedural states; Z80.0 Family history of malignant neoplasm of digestive organs; Z95.5 Presence of coronary angioplasty implant and graft; Z88.2 Allergy status to sulfonamides; Z88.1 Allergy status to other antibiotic agents; Z79.01 Long term (current) use of anticoagulants
CPT/HCPCS: 45380; J2704; J3010; J7120; 00812; 88305

== ENCOUNTER 2022-02-19 13:44 | Emergency (ER) | payer MEDICARE, BC ==
[2022-02-19 14:12] VITALS: BP 151/83; PULSE 69
[2022-02-19] MEDS ORDERED: Cyclobenzaprine 10 MG Tab PO ONE (14:21)
== END 2022-02-19 15:24 | disposition home or self-care (01) ==
LOC: MW.ED 13:44
DX: M62.830 Muscle spasm of back (principal); E78.00 Pure hypercholesterolemia, unspecified; I10 Essential (primary) hypertension; K21.9 Gastro-esophageal reflux disease without esophagitis; E03.9 Hypothyroidism, unspecified; E66.9 Obesity, unspecified; Z68.42 Body mass index [BMI] 45.0-49.9, adult; Z88.2 Allergy status to sulfonamides; Z88.1 Allergy status to other antibiotic agents; Z79.82 Long term (current) use of aspirin; Z79.899 Other long term (current) drug therapy; Z79.01 Long term (current) use of anticoagulants
CPT/HCPCS: 81001; 99283; A9270